=== PATIENT | female | born 1940 | race Caucasian/White ===

== ENCOUNTER → 2017-06-03 | Outpatient (CLI) | payer OTHER ==
[~2017-06-03] MED LIST: ASPIR 8181 MG PO; CARDIZEM CD180 MG PO; CARDIZEM CD240 MG PO; COLACE100 MG PO; COUMADIN 2.5MG2.5 M1 PO; COUMADIN 5 MG TA5 M1 PO; FERREX 150150 MG PO; FLECAINIDE ACET50 M2 PO; GLUCOPHAGE500 MG PO; HYDROCODONE-AP1 EAC6 PO; IPRAT-ALBUT 0.5-3 ML INH; LUTEIN20 MG PO; METOPROLOL SUCC50 MG PO; PACERONE 200 M200 M1 PO; PEPCID20 MG PO; RYTHMOL SR325 MG PO; ZOCOR40 MG PO
[2017-06-03 14:48] LABS: ABG SAMPLE TYPE ARTERIAL; BE(vivo) 2.8 mmol/L (-2 to +3); LACTATE 1.16 mmol/L (0.5-2.0); O2(CT) 16.1 mL/dL (15.0-23.0); PO2 85.1 mmHg (80.0-100.0); pH 7.447 (7.360-7.450); sO2 96.8 % (92.0-98.0); tCO2 28.2 mmol/L (24.0-30.0)
[2017-06-03 14:49] LABS: STICK SITE R.RADIAL
== END ==
LOC: PUL 14:19
PROVIDERS: Internal Medicine Pulmonary Disease
DX: R05 Cough (principal)

== ENCOUNTER → 2017-06-25 | Outpatient (CLI) | payer OTHER ==
--- NOTE | ~2017-06-25 | CNG ---
[facility] [place] [address] CYTO-NONGYN REPORT PROCEDURE Name: ALTAGRACIA RAE Room #: REG [facility].Evelio.#: [id number] Admission: 06/25/17 Date of : 44 Discharge: Report #: [id number] Path Case #: [id number] CYTOPATHOLOGY REPORT COLLECTION DATE: 06/25/2017 RECEIVED DATE: 06/26/2017 SUBMITTING PHYS: Dr. Ian Loza OTHER PHYS: Dr. Samuel King CLINICAL HISTORY: Right pleural effusion SPECIMEN(S) RECEIVED: A.Pleural fluid, Right * * * * * * * * * * * * FINAL DIAGNOSIS: A. Pleural fluid, Right: - No malignant epithelial cells identified. Paucicellular specimen with rare reactive mesothelial cells and scattered small lymphocytes present. PATHOLOGIST: Sophia Gomez M.D. REPORT ELECTRONICALLY SIGNED BY: Sophia Gomez M.D. DATE/TIME: 06/30/2017 12:41 * * * * * * * * * * * * GROSS PATHOLOGY: A. Pleural fluid, Right: The specimen is submitted unfixed, labeled "Altagracia Rae". Received by the Cytology Department is 11 mL of cloudy light red fluid. One ThinPrep slide and a formalin fixed cell block were prepared. (lg.) BPO SPECIALIST(S): JAZMINE Zaldivar(ASCP)IAC INITIAL CPT CODE(S): A; 51864, 57156 Professional services performed by [facility] at [facility] [address], [place] [address] Technical services performed by [facility] at [address] [place] [address], [address], [place] [address]. [facility] [address] [place] [address] CYTO-NONGYN REPORT PROCEDURE Name: ALTAGRACIA RAE Room #: REG [facility].#: [id number] Admission: 06/25/17 Date of : 44 Discharge: Report #: [id number] Path Case #: [id number] [place] [address], [address] [place] [address] PHONE: [phone] DIRECTOR: Manan Xiong M.D. * * * END OF REPORT * * *
[2017-06-25 10:56] LABS: INR 1.2; PROTIME 12.5 Seconds (9.3-11.4)
[2017-06-25 13:00] LABS: SOURCE CHEST FLUID
[2017-06-25 13:01] LABS: CLARITY CLOUDY; COLOR RED; TOTAL VOLUME 55 mL
[2017-06-25 13:21] LABS: BF NUCLEATED CELLS 659; BF RBC 16236
[2017-06-25 14:02] LABS: BF NEUTROPHILS 3
[2017-06-25 14:03] LABS: BF MACROPHAGE 23
[2017-06-25 14:17] LABS: SOURCE CHEST
[2017-06-26 11:10] LABS: BODY FLUID ALBUMIN 1.9 g/dL (()); BODY FLUID AMYLASE 66 U/L (()); BODY FLUID GLUCOSE 89 mg/dL (()); BODY FLUID LDH 130 IU/L (()); BODY FLUID PROTEIN 4.6 g/dL (())
== END | disposition home or self-care (01) ==
LOC: CAT 08:05
PROVIDERS: Internal Medicine Pulmonary Disease
DX: J90 Pleural effusion, not elsewhere classified (principal)

== ENCOUNTER → 2017-07-23 | Outpatient (CLI) | payer OTHER | LOC: CAT 08:27 | DX: K74.60 Unspecified cirrhosis of liver (principal); K80.20 Calculus of gallbladder without cholecystitis without obstruction; R16.1 Splenomegaly, not elsewhere classified; R18.8 Other ascites; K76.0 Fatty (change of) liver, not elsewhere classified; K86.89 Other specified diseases of pancreas; J98.11 Atelectasis; Z98.890 Other specified postprocedural states ==

== ENCOUNTER → 2017-08-17 | Outpatient (CLI) | payer OTHER | LOC: RAD 08:21 | DX: M47.894 Other spondylosis, thoracic region (principal); J90 Pleural effusion, not elsewhere classified; K74.60 Unspecified cirrhosis of liver ==

== ENCOUNTER → 2017-09-11 | Outpatient (CLI) | payer OTHER ==
[2017-09-11 09:46] LABS: INR 1.2; PROTIME 12.7 Seconds (9.3-11.4)
== END | disposition home or self-care (01) ==
LOC: RAD 08:36
PROVIDERS: Internal Medicine Pulmonary Disease
DX: J90 Pleural effusion, not elsewhere classified (principal); Z79.82 Long term (current) use of aspirin; Z79.899 Other long term (current) drug therapy; Z79.891 Long term (current) use of opiate analgesic; Z79.01 Long term (current) use of anticoagulants

== ENCOUNTER → 2017-10-20 | Outpatient (CLI) | payer OTHER | LOC: RAD 09:13 | DX: J90 Pleural effusion, not elsewhere classified (principal); R63.4 Abnormal weight loss; I48.91 Unspecified atrial fibrillation; I10 Essential (primary) hypertension; E11.8 Type 2 diabetes mellitus with unspecified complications ==

== ENCOUNTER → 2017-10-27 | Outpatient (CLI) | payer OTHER ==
[2017-10-27 08:57] LABS: CREATININE 0.9 mg/dL (0.6-1.0)
[2017-10-27 10:05] LABS: INR 1.2; PROTIME 12.3 Seconds (9.3-11.4)
[2017-10-27 11:02] LABS: SOURCE RIGHT CHEST
[2017-10-27 11:03] LABS: CLARITY SLIGHTLY CLOUDY; COLOR DARK YELLOW; TOTAL VOLUME 55 mL
[2017-10-27 11:08] LABS: SOURCE RIGHT CHEST
[2017-10-27 11:09] LABS: SOURCE RIGHT CHEST
[2017-10-27 11:25] LABS: BF NUCLEATED CELLS 620; BF RBC 4510
[2017-10-27 12:48] LABS: BF NEUTROPHILS 1
[2017-10-27 12:49] LABS: BF MACROPHAGE 12
[2017-10-28 12:12] LABS: BODY FLUID ALBUMIN 1.8 g/dL (()); BODY FLUID AMYLASE 73 U/L (()); BODY FLUID GLUCOSE 98 mg/dL (()); BODY FLUID LDH 143 IU/L (())
== END | disposition home or self-care (01) ==
LOC: ULTRA 06:18
PROVIDERS: Internal Medicine Pulmonary Disease
DX: J90 Pleural effusion, not elsewhere classified (principal); I10 Essential (primary) hypertension; E11.9 Type 2 diabetes mellitus without complications; I48.0 Paroxysmal atrial fibrillation; E78.5 Hyperlipidemia, unspecified; Z98.890 Other specified postprocedural states; Z79.899 Other long term (current) drug therapy; Z79.82 Long term (current) use of aspirin; Z79.891 Long term (current) use of opiate analgesic

== ENCOUNTER → 2017-10-30 | Outpatient (CLI) | payer OTHER | LOC: CAT 05:46 | DX: I25.10 Atherosclerotic heart disease of native coronary artery without angina pectoris (principal); I70.0 Atherosclerosis of aorta; I48.91 Unspecified atrial fibrillation; R63.4 Abnormal weight loss ==

== ENCOUNTER 2018-07-24 15:25 | Inpatient (IN) | payer OTHER ==
[~2018-07-24] VITALS: Ht 167.6 cm; Wt 73.5 kg
[2018-07-24 15:26] VITALS: BP 142/91
[2018-07-24 16:25] LABS: ABSOLUTE NEUTROPHILS 3.9 thou/uL (1.4-8.2); BASOPHILS 0.4 % (0.0-2.0); EOSINOPHILS 1.7 % (0.0-3.0); HEMATOCRIT 36.9 % (37.0-47.0); HEMOGLOBIN 12.5 gm/dL (12.0-15.0); LYMPHOCYTES 20.4 % (24.0-44.0); MCH 28.9 pg (26.0-34.0); MCHC 33.9 g/dL (28.0-37.0); MCV 85.4 fL (80.0-100.0); MONOCYTES 5.8 % (1.0-8.0); PLATELET COUNT 163 thou/uL (150-400); POLYS 71.7 % (36.0-66.0); RBC 4.32 mil/uL (4.20-5.00); WBC 5.5 thou/uL (4.0-11.0)
[2018-07-24 16:31] LABS: CALCIUM 9.1 mg/dL (8.5-10.1); CREATININE 0.9 mg/dL (0.6-1.0); POTASSIUM 3.7 mmol/L (3.5-5.1)
[2018-07-24 16:35] LABS: PROTIME 48.3 Seconds (9.3-11.4)
[2018-07-24 16:37] LABS: ALBUMIN 3.8 g/dL (3.4-5.0); TOTAL BILIRUBIN 0.6 mg/dL (<0.1-1.0); TOTAL PROTEIN 8.5 g/dL (6.4-8.2)
[2018-07-24 16:38] LABS: INR 4.7
[2018-07-24 19:59] VITALS: BP 131/43
[2018-07-24] MEDS ORDERED: COUMADIN 3 MG TA3 M1 PO (20:06)
--- NOTE | 2018-07-25 03:13 | NUR ---
PT ARRIVED AT SHIFT CHANGE 1944 PT ORIENTATED TO ROOM AND CALL LIGHT PT SLEPT MOST OF THE NIGHT NO ISSUES OVERNIGHT.
[2018-07-25 04:54] VITALS: BP 114/56
[2018-07-25 05:33] LABS: PROTIME 67.2 Seconds (9.3-11.4)
[2018-07-25 05:52] LABS: INR 6.5
[2018-07-25 07:10] VITALS: BP 119/48
[2018-07-25 08:12] LABS: INR 6.7
--- NOTE | 2018-07-25 11:22 | NUR ---
TOWARDS POC PT A/O X4, VSS,AFEBRILE. NO EPISODES OF NV. PAIN CONTROLLED BY MEDS. SHOULDER IMMOBILIZER INTACT. AWAITING FOR PT/OT EVAL. NO CONCERNS VOICED AT THIS TIME. WILL CONTINUE TO MONITOR.
[2018-07-25 14:00] VITALS: BP 120/49
[2018-07-25 19:51] VITALS: BP 115/46
[2018-07-26 04:41] VITALS: BP 113/45
[2018-07-26 04:48] LABS: HEMATOCRIT 28.9 % (37.0-47.0); MCH 29.7 pg (26.0-34.0); MCHC 34.8 g/dL (28.0-37.0); MCV 85.5 fL (80.0-100.0); RBC 3.38 mil/uL (4.20-5.00); RDW 14.4 % (10.5-14.5); WBC 6.1 thou/uL (4.0-11.0)
[2018-07-26 04:55] LABS: CALCIUM 8.3 mg/dL (8.5-10.1)
[2018-07-26 05:01] LABS: PROTIME 76.4 Seconds (9.3-11.4)
[2018-07-26 05:04] LABS: INR 7.4
--- NOTE | 2018-07-26 07:04 | NUR ---
progress pt admitted with right humeral fracture from fall at home. right arm and shoulder immobilized. o2 sat down to 85% on ra placed on 2 liters o2 sats up to 92%. pt/ot consult. tele reading afib with rates of 60's to 70's. taking hydrocodone for pain with effect. voiding qs. inr 6.7 at start of shift and 7.4 this am sanya rodríguez net maker notified, ordered a po dose of vitamin k given with apple juice. to f/u with ortho in 6 to 8 weeks.
[2018-07-26 08:00] VITALS: BP 132/46
[2018-07-26] MEDS ORDERED: HYDROCODON-ACE1 EAC7 PO (10:50)
[2018-07-26 12:05] VITALS: BP 132/46
--- NOTE | 2018-07-26 15:00 | NUR ---
ASSUMED CARE AT 0700. PT WAS CLEARED BY ORTHO, F/U WITH [facility] IN 2WKS AND 'S [facility] FOR INR DRAW ON THU. RECEIVED AN ORDER TO D/C PT HOME WITH PAIN MEDICATION. OT ALSO SAW THE PT AND GAVE EDUCATION ON HOW TO CARE OF THE R SHOULDER SLING. IV D/C, TELE D/C. P/U. PRESCRIPTION AND INSTRUCTION GIVEN TO PT AT BEDSIDE. VERBALIZES UNDERSTANDING. LEFT IN STABLE CONDITION,
== END 2018-07-26 14:55 | disposition home or self-care (01) | DRG 562 ==
LOC: ER 15:25 → EROBS 17:41 → 4W 17:41 → ENTRNSPT 07-26 14:32 → EDTRNSPTSTS 07-26 14:35 → 4W 07-26 14:55
PROVIDERS: Hospitalist; Nurse Practitioner Family; Physician Assistant; ADMIT Family Medicine
PROC: 2W3AX1Z Immobilization of Right Upper Arm using Splint (ICD-10-PCS; principal; 2018-07-24)
DX: S42.201A Unspecified fracture of upper end of right humerus, initial encounter for closed fracture (principal); E43 Unspecified severe protein-calorie malnutrition; M25.011 Hemarthrosis, right shoulder; J90 Pleural effusion, not elsewhere classified; E11.9 Type 2 diabetes mellitus without complications; I10 Essential (primary) hypertension; E78.00 Pure hypercholesterolemia, unspecified; Z87.891 Personal history of nicotine dependence; Z79.01 Long term (current) use of anticoagulants; W01.0XXA Fall on same level from slipping, tripping and stumbling without subsequent striking against object, initial encounter; Y93.01 Activity, walking, marching and hiking; Y92.89 Other specified places as the place of occurrence of the external cause; Y99.8 Other external cause status
CPT/HCPCS: 10047

== ENCOUNTER → 2019-07-12 | Outpatient (CLI) | payer OTHER ==
[~2019-07-12] MED LIST changes: +COUMADIN 2 MG TA2 M1 PO; +COUMADIN 3 MG TA3 M1 PO; +HYDROCODON-ACE1 EAC7 PO
== END ==
LOC: SJCVC 13:33
DX: Z51.81 Encounter for therapeutic drug level monitoring (principal); I48.91 Unspecified atrial fibrillation; E11.9 Type 2 diabetes mellitus without complications; I10 Essential (primary) hypertension; E78.00 Pure hypercholesterolemia, unspecified; Z95.2 Presence of prosthetic heart valve; Z79.01 Long term (current) use of anticoagulants

== ENCOUNTER → 2019-07-19 | Outpatient (CLI) | payer OTHER | LOC: SJCVC 08:46 | DX: Z51.81 Encounter for therapeutic drug level monitoring (principal); I48.91 Unspecified atrial fibrillation; E11.9 Type 2 diabetes mellitus without complications; I10 Essential (primary) hypertension; E78.00 Pure hypercholesterolemia, unspecified; Z95.2 Presence of prosthetic heart valve; Z79.01 Long term (current) use of anticoagulants ==

== ENCOUNTER → 2019-07-26 | Outpatient (CLI) | payer OTHER | LOC: SJCVC 08:22 | DX: Z51.81 Encounter for therapeutic drug level monitoring (principal); I48.91 Unspecified atrial fibrillation; E78.00 Pure hypercholesterolemia, unspecified; I10 Essential (primary) hypertension; E11.9 Type 2 diabetes mellitus without complications; Z79.01 Long term (current) use of anticoagulants ==

== ENCOUNTER → 2019-08-02 | Outpatient (CLI) | payer OTHER | LOC: SJCVC 08:26 | DX: Z51.81 Encounter for therapeutic drug level monitoring (principal); I48.91 Unspecified atrial fibrillation; E11.9 Type 2 diabetes mellitus without complications; I10 Essential (primary) hypertension; E78.00 Pure hypercholesterolemia, unspecified; Z95.2 Presence of prosthetic heart valve; Z79.01 Long term (current) use of anticoagulants ==

== ENCOUNTER 2019-08-04 09:28 | Inpatient (IN) | payer OTHER ==
[~2019-08-04] VITALS: Ht 165.1 cm; Wt 68.0 kg
[2019-08-04] VITALS (8 sets, daily range): BP systolic 100–135; BP diastolic 35–46
--- NOTE | ~2019-08-04 | EKG ---
[facility] [place] [address] ELECTROCARDIOGRAM REPORT Name: JWVIPUL SUE Room #: PRE M.R.#: [id number] Admission: Attend Phys: Discharge: Date of : 44 Report #: [id number] THIS REPORT FOR: cc: Reji King MD, Neal A. MD Epiphany, Epiphany MD ~ THIS REPORT FOR: //name// [facility] ED Test Date: 2019-08-04 Test Time: 09:31:10 Pat Name: VIPUL ESCALERA Department: Room: Gender: F Sole Trimmer: ROSA : 1940 Requested By: Philip Mckeon Order Number: [id number] MD: Measurements Intervals Independence Rate: 93 P: AL: QRS: -90 QRSD: 114 T: 59 QT: 380 QTc: 473 Interpretive Statements Atrial fibrillation Borderline IVCD with LAD Abnormal R-wave progression, late transition Inferior infarct, old Compared to ECG 08/14/2014 07:30:42 Myocardial infarct finding now present Left-axis deviation no longer present [email or web address] By: 0931 0 Epiphany Epiphany, /EPI
[~2019-08-04 09:28] MED LIST changes: -COUMADIN 2 MG TA2 M1 PO
[2019-08-04 09:55] LABS: ABSOLUTE NEUTROPHILS 4.7 thou/uL (1.4-8.2); BASOPHILS 1.2 % (0.0-2.0); EOSINOPHILS 0.1 % (0.0-3.0); HEMATOCRIT 38.2 % (37.0-47.0); HEMOGLOBIN 12.7 gm/dL (12.0-15.0); LYMPHOCYTES 13.5 % (24.0-44.0); MCH 28.4 pg (26.0-34.0); MCHC 33.2 g/dL (28.0-37.0); MCV 85.5 fL (80.0-100.0); PLATELET COUNT 115 thou/uL (150-400); POLYS 75.2 % (36.0-66.0); RBC 4.47 mil/uL (4.20-5.00); RDW 15.1 % (10.5-14.5); WBC 6.3 thou/uL (4.0-11.0)
[2019-08-04 09:57] LABS: ANION GAP 6 mmol/L (7-16); BUN 18 mg/dL (7-18); CALCIUM 8.4 mg/dL (8.5-10.1); CHLORIDE 98 mmol/L (98-107); CO2 30 mmol/L (21-32); CREATININE 1.1 mg/dL (0.6-1.0); GLUCOSE 74 mg/dL (74-106); INR 2.3; PROTIME 23.6 Seconds (9.3-11.4); SODIUM 134 mmol/L (136-145)
[2019-08-04 09:59] LABS: POTASSIUM 3.7 mmol/L (3.5-5.1)
[2019-08-04 10:05] LABS: MAGNESIUM 1.8 mg/dL (1.8-2.4); TROPONIN-I <0.06 ng/mL (<0.06)
[2019-08-04] MEDS ORDERED: COUMADIN 2 MG TA2 M1 PO ×2 (10:12→10:13)
[2019-08-04 12:41] LABS: URINE BILIRUBIN NEGATIVE (Negative); URINE BLOOD 3+ (Negative); URINE CLARITY CLEAR; URINE COLOR YELLOW; URINE GLUCOSE-RANDOM* NEGATIVE (Negative); URINE KETONES NEGATIVE (Negative); URINE LEUKOCYTES-REFLEX NEGATIVE (Negative); URINE NITRITE-REFLEX NEGATIVE (Negative); URINE PROTEIN (DIPSTICK) 2+ (Negative); URINE SPECIFIC GRAVITY >= 1.030 (1.005-1.035)
[2019-08-04 12:44] LABS: SQUAMOUS None Seen /LPF (0-3); URINE RBC 0-2 Rare /HPF (0-2); URINE WBC-REFLEX None Seen /HPF (0-5)
[2019-08-04 12:45] LABS: AMORPHOUS URATES Few /LPF (None Seen); BACTERIA-REFLEX None Seen /HPF (None Seen); CRYSTALS None Seen /LPF (None Seen)
--- NOTE | 2019-08-04 16:27 | NUR ---
PT CARE ASSUMED APPROX 1500. ASSESSMENT CHARTED. PT DENIES PAIN AND SOA. VSS. UP WITH SBA. ORTHO BPs WERE NEGATIVE. SON AT BEDSIDE. BOTH GIVEN POC UPDATES. THEY DENY QUESTIONS OR CONCERNS AT THIS TIME REGARDING POC. NO DISTRESS NOTED.
[2019-08-05] VITALS (7 sets, daily range): BP systolic 124–143; BP diastolic 35–46
--- NOTE | 2019-08-05 00:49 | NUR ---
ASSESSMENTS CHARTED, MEDS GIVEN CHARTED. PATIENT RESTING IN BED DURING SHIFT. FAMILY AT BEDSIDE AT START OF SHIFT. PATIENT ALERT AND ORIENTED, AFIB ON TELEMETRY, LUNGS CLEAR ON ROOM AIR, UP WITH STANDBY ASSIST TO BATHROOM DUE TO EARLIER SYNCOPAL EPISODE DURING DAY. PATIENT RESTARTED ON WARFARIN THIS EVENING. CHEST XRAY AND CT OF HEAD BOTH SHOW NO ACUTE PROCESSES. PATIENT ON FALL RISK PRECAUTIONS. DENIES PAIN.
--- NOTE | 2019-08-05 08:58 | NUR ---
called to echo buy technology applications consultant to assess IV. Pt c/o pain at IV site in L AC. It is actively bleeding. IV does flush and has positive blood return. Per Dr. Agosto, pt is to be discharged after her echo. IV removed by this RN.
--- NOTE | 2019-08-05 09:52 | 2DMMODE ---
[facility] [address] [place] [address] 2 D/M-MODE ECHOCARDIOGRAM Name: VIPUL ESCALERA Room #: 204-P ADM IN M.R.#: [id number] Admission: 08/04/19 Attend Phys: Reji King MD Discharge: Date of : 44 Report #: [id number] THIS REPORT FOR: cc: Reji King MD, Neal A. MD Park, Jin S. MD ~ THIS REPORT FOR: //name// APPROVED REPORT Study performed: 08/05/2019 08:50:48 EXAM: Comprehensive 2D, Doppler, and color-flow Echocardiogram Patient Location: Echo lab Room #: 204 Status: routine BSA: 1.75 HR: 82 bpm BP: 143/42 mmHg Rhythm: Atrial Fibrillation Other Information Study Quality: Good Indications Aortic Valve Disease Diabetes Atrial Fibrillation Syncope Hypertension/HDD 2D Dimensions RVDd: 34.19 mm IVSd: 10.89 (7-11mm) LVOT Diam: 16.93 (18-24mm) LVDd: 42.36 mm PWd: 10.63 (7-11mm) Ascending Ao: 22.48 (22-36mm) LVDs: 27.59 (25-40mm) Aortic Root: 26.12 mm IVC: 23.00 mm Volumes Left Atrial Volume (Systole) Single Plane 4CH: 84.78 mL Single Plane 2CH: 83.33 mL LA ESV Index: 52.00 mL/m2 [facility] [address] [place] [address] 2 D/M-MODE ECHOCARDIOGRAM Name: VIPUL ESCALERA Room #: 204-P ADM IN M.R.#: [id number] Admission: 08/04/19 Attend Phys: Reji King, Discharge: Date of : 44 Report #: [id number] Aortic Valve AoV Peak Juan.: 4.00 m/s AO Peak Gr.: 63.97 mmHg LVOT Max P.97 mmHg AO Mean Gr.: 39.28 mmHg LVOT Mean P.09 mmHg AO V2 Mean: 2.87 m/s LVOT Max V: 1.41 m/s AO V2 VTI: 83.44 cm LVOT Mean V: 1.05 m/s DEXTER (VTI): 0.94 cm2 LVOT V1 VTI: 34.74 cm DEXTER Vmax: 0.79 cm2 SV (LVOT): 78.20 mL Pulmonary Valve PV Peak Juan.: 1.07 m/s PV Peak Gr.: 4.62 mmHg Tricuspid Valve TR Peak Juan.: 3.06 m/s TR Peak Gr.: 37.62 mmHg PA Pressure: 48.00 mmHg Left Ventricle The left ventricle is normal size. There is normal LV segmental wall motion. There is normal left ventricular wall thickness. The left ventricular systolic function is normal. The left ventricular ejection fraction is within the normal range. LVEF is 55-60%. This study is not technically sufficient to allow evaluation of the LV diastolic function due to atrial fibrillation. Right Ventricle The right ventricle is normal size. The right ventricular systolic function is normal. Atria Left atrium is dilated. Right atrium is dilated. Aortic Valve Bioprosthetic aortic valve is present with a peak gradient of 64 mmHg and a mean gradient of 39 mmHg. Mild aortic regurgitation. Mitral Valve The mitral valve is normal in structure. There is mitral annular calcification. Trace to mild mitral regurgitation. No evidence of mitral valve stenosis. Tricuspid Valve The tricuspid valve is normal in structure. There is mild tricuspid regurgitation. Estimated PAP 48 mmHg. There is moderate pulmonary hypertension. [facility] [address] [place] [address] 2 D/M-MODE ECHOCARDIOGRAM Name: VIPUL ESCALERA Room #: 204-P [facility] IN .R.#: [id number] Admission: 08/04/19 Attend Phys: Reji King, Discharge: Date of : 44 Report #: [id number] Pulmonic Valve The pulmonary valve is normal in structure. Trace pulmonic regurgitation. Great Vessels The aortic root is normal in size. IVC is dilated and collapses >50% with inspiration. Pericardium There is no pericardial effusion. <Conclusion> The left ventricle is normal size. There is normal left ventricular wall thickness. The left ventricular systolic function is normal. The right ventricle is normal size. Left atrium is dilated. Bioprosthetic aortic valve is present with a peak gradient of 64 mmHg and a mean gradient of 39 mmHg. Mild aortic regurgitation. Trace to mild mitral regurgitation. There is mild tricuspid regurgitation. Estimated PAP 48 mmHg. <ELECTRONICALLY SIGNED> By: Toney Agosto MD 08/05/1950 1 1 Toney Agosto MD /INF
--- NOTE | 2019-08-05 14:11 | NUR ---
PT CARE ASSUMED APPROXIMATELY 0700. PT ASSESSMENTS CHARTED. PT DENIED ANY PAIN. PT RECIEVED FLU VACCINE PRIOR TO DISCHARGE.
== END 2019-08-05 13:39 | disposition home or self-care (01) | DRG 641 ==
LOC: ER 09:28 → EROBS 13:45 → 2N 13:45 → ENTRNSPT 08-05 13:03 → EDTRNSPTSTS 08-05 13:20 → 2N 08-05 13:39
PROVIDERS: Emergency Medicine; ADMIT Family Medicine
DX: E86.0 Dehydration (principal); R55 Syncope and collapse; Z91.81 History of falling; Z79.01 Long term (current) use of anticoagulants; E78.00 Pure hypercholesterolemia, unspecified; E11.9 Type 2 diabetes mellitus without complications; I10 Essential (primary) hypertension; I48.91 Unspecified atrial fibrillation; Z95.2 Presence of prosthetic heart valve; Z87.891 Personal history of nicotine dependence; I35.0 Nonrheumatic aortic (valve) stenosis; E78.5 Hyperlipidemia, unspecified
CPT/HCPCS: 10081

== ENCOUNTER → 2019-08-09 | Outpatient (CLI) | payer OTHER ==
[~2019-08-09] MED LIST changes: +COUMADIN 2 MG TA2 M1 PO
== END ==
LOC: SJCVC 08:29
DX: Z51.81 Encounter for therapeutic drug level monitoring (principal); I48.91 Unspecified atrial fibrillation; E11.9 Type 2 diabetes mellitus without complications; I10 Essential (primary) hypertension; E78.00 Pure hypercholesterolemia, unspecified; Z68.24 Body mass index [BMI] 24.0-24.9, adult; Z95.3 Presence of xenogenic heart valve; Z79.01 Long term (current) use of anticoagulants

== ENCOUNTER → 2019-08-16 | Outpatient (CLI) | payer OTHER | LOC: SJCVC 08:05 | DX: Z51.81 Encounter for therapeutic drug level monitoring (principal); Z79.01 Long term (current) use of anticoagulants ==

== ENCOUNTER → 2019-08-19 | Outpatient (CLI) | payer OTHER | LOC: SJCVC 11:24 | DX: Z51.81 Encounter for therapeutic drug level monitoring (principal); I48.91 Unspecified atrial fibrillation; I35.9 Nonrheumatic aortic valve disorder, unspecified; I10 Essential (primary) hypertension; E78.00 Pure hypercholesterolemia, unspecified; E11.9 Type 2 diabetes mellitus without complications; Z95.2 Presence of prosthetic heart valve; Z87.891 Personal history of nicotine dependence; Z79.899 Other long term (current) drug therapy; Z79.01 Long term (current) use of anticoagulants ==

== ENCOUNTER → 2019-08-26 | Outpatient (CLI) | payer OTHER | LOC: SJCVC 08:21 | DX: Z51.81 Encounter for therapeutic drug level monitoring (principal); I48.91 Unspecified atrial fibrillation; E11.9 Type 2 diabetes mellitus without complications; I10 Essential (primary) hypertension; E78.00 Pure hypercholesterolemia, unspecified; Z95.2 Presence of prosthetic heart valve; Z79.01 Long term (current) use of anticoagulants ==

== ENCOUNTER → 2019-09-02 | Outpatient (CLI) | payer OTHER | LOC: SJCVCIMAG 14:23 | DX: I48.91 Unspecified atrial fibrillation (principal); Z79.01 Long term (current) use of anticoagulants ==

== ENCOUNTER → 2019-09-16 | Outpatient (CLI) | payer OTHER | LOC: SJCVC 08:02 | DX: Z51.81 Encounter for therapeutic drug level monitoring (principal); E11.9 Type 2 diabetes mellitus without complications; I48.91 Unspecified atrial fibrillation; I10 Essential (primary) hypertension; E78.00 Pure hypercholesterolemia, unspecified; Z79.01 Long term (current) use of anticoagulants ==

== ENCOUNTER → 2019-09-23 | Outpatient (CLI) | payer OTHER | LOC: SJCVC 08:33 | DX: Z51.81 Encounter for therapeutic drug level monitoring (principal); I48.91 Unspecified atrial fibrillation; I10 Essential (primary) hypertension; E78.00 Pure hypercholesterolemia, unspecified; Z72.0 Tobacco use; Z79.01 Long term (current) use of anticoagulants; Z68.24 Body mass index [BMI] 24.0-24.9, adult ==

== ENCOUNTER → 2019-09-30 | Outpatient (CLI) | payer OTHER | LOC: SJCVC 08:24 | DX: Z51.81 Encounter for therapeutic drug level monitoring (principal); I48.91 Unspecified atrial fibrillation; E11.9 Type 2 diabetes mellitus without complications; I10 Essential (primary) hypertension; E78.00 Pure hypercholesterolemia, unspecified; Z95.2 Presence of prosthetic heart valve; Z79.01 Long term (current) use of anticoagulants; Z79.899 Other long term (current) drug therapy ==

== ENCOUNTER → 2019-10-06 | Outpatient (CLI) | payer OTHER | LOC: SJCVC 08:35 | PROVIDERS: ATTEND Internal Medicine | DX: Z51.81 Encounter for therapeutic drug level monitoring (principal); E11.9 Type 2 diabetes mellitus without complications; I10 Essential (primary) hypertension; E78.00 Pure hypercholesterolemia, unspecified; Z79.01 Long term (current) use of anticoagulants ==

== ENCOUNTER → 2019-10-20 | Outpatient (CLI) | payer OTHER | LOC: SJCVC 08:20 | DX: Z51.81 Encounter for therapeutic drug level monitoring (principal); I48.91 Unspecified atrial fibrillation; E78.00 Pure hypercholesterolemia, unspecified; I10 Essential (primary) hypertension; Z95.2 Presence of prosthetic heart valve; Z87.891 Personal history of nicotine dependence; Z79.01 Long term (current) use of anticoagulants ==

== ENCOUNTER → 2019-11-17 | Outpatient (CLI) | payer OTHER | LOC: SJCVC 08:55 | DX: Z51.81 Encounter for therapeutic drug level monitoring (principal); I48.91 Unspecified atrial fibrillation; E11.9 Type 2 diabetes mellitus without complications; I10 Essential (primary) hypertension; E78.00 Pure hypercholesterolemia, unspecified; Z79.01 Long term (current) use of anticoagulants; Z79.899 Other long term (current) drug therapy; Z95.2 Presence of prosthetic heart valve ==

== ENCOUNTER → 2019-12-15 | Outpatient (CLI) | payer OTHER | LOC: SJCVC 08:12 | PROVIDERS: ATTEND Internal Medicine Cardiovascular Disease | DX: Z51.81 Encounter for therapeutic drug level monitoring (principal); I48.91 Unspecified atrial fibrillation; E11.9 Type 2 diabetes mellitus without complications; I10 Essential (primary) hypertension; E78.00 Pure hypercholesterolemia, unspecified; Z68.24 Body mass index [BMI] 24.0-24.9, adult; Z79.01 Long term (current) use of anticoagulants ==

== ENCOUNTER → 2019-12-22 | Outpatient (CLI) | payer OTHER | LOC: SJCVCIMAG 08:51 | PROVIDERS: ATTEND Internal Medicine Cardiovascular Disease | DX: Z51.81 Encounter for therapeutic drug level monitoring (principal); I48.91 Unspecified atrial fibrillation; E11.9 Type 2 diabetes mellitus without complications; I10 Essential (primary) hypertension; E78.00 Pure hypercholesterolemia, unspecified; Z95.2 Presence of prosthetic heart valve; Z79.01 Long term (current) use of anticoagulants; Z79.899 Other long term (current) drug therapy ==

== ENCOUNTER → 2020-01-05 | Outpatient (CLI) | payer OTHER | LOC: SJCVC 08:25 | PROVIDERS: ATTEND Internal Medicine Cardiovascular Disease | DX: Z51.81 Encounter for therapeutic drug level monitoring (principal); I48.91 Unspecified atrial fibrillation; E11.9 Type 2 diabetes mellitus without complications; I10 Essential (primary) hypertension; E78.00 Pure hypercholesterolemia, unspecified; Z95.2 Presence of prosthetic heart valve; Z79.01 Long term (current) use of anticoagulants; Z79.899 Other long term (current) drug therapy ==

== ENCOUNTER → 2020-02-02 | Outpatient (CLI) | payer OTHER | LOC: SJCVC 08:31 | PROVIDERS: ATTEND Internal Medicine Cardiovascular Disease | DX: Z51.81 Encounter for therapeutic drug level monitoring (principal); I48.91 Unspecified atrial fibrillation; E11.9 Type 2 diabetes mellitus without complications; I10 Essential (primary) hypertension; E78.00 Pure hypercholesterolemia, unspecified; Z95.2 Presence of prosthetic heart valve; Z79.01 Long term (current) use of anticoagulants; Z79.899 Other long term (current) drug therapy ==

== ENCOUNTER → 2020-03-01 | Outpatient (CLI) | payer OTHER | LOC: SJCVC 08:10 | PROVIDERS: ATTEND Internal Medicine Cardiovascular Disease | DX: Z51.81 Encounter for therapeutic drug level monitoring (principal); I48.91 Unspecified atrial fibrillation; E11.9 Type 2 diabetes mellitus without complications; I10 Essential (primary) hypertension; E78.00 Pure hypercholesterolemia, unspecified; Z95.2 Presence of prosthetic heart valve; Z68.24 Body mass index [BMI] 24.0-24.9, adult; Z79.01 Long term (current) use of anticoagulants; Z79.899 Other long term (current) drug therapy ==

== ENCOUNTER → 2020-03-08 | Outpatient (CLI) | payer OTHER | LOC: SJCVC 08:16 | PROVIDERS: ATTEND Internal Medicine Cardiovascular Disease | DX: Z51.81 Encounter for therapeutic drug level monitoring (principal); Z79.01 Long term (current) use of anticoagulants; I48.91 Unspecified atrial fibrillation; I35.2 Nonrheumatic aortic (valve) stenosis with insufficiency; I10 Essential (primary) hypertension; Z95.2 Presence of prosthetic heart valve ==

== ENCOUNTER → 2020-03-22 | Outpatient (CLI) | payer OTHER | LOC: SJCVC 08:19 | PROVIDERS: ATTEND Internal Medicine Cardiovascular Disease | DX: Z51.81 Encounter for therapeutic drug level monitoring (principal); I48.91 Unspecified atrial fibrillation; I10 Essential (primary) hypertension; E78.00 Pure hypercholesterolemia, unspecified; E11.9 Type 2 diabetes mellitus without complications; Z95.2 Presence of prosthetic heart valve; Z79.01 Long term (current) use of anticoagulants; Z79.899 Other long term (current) drug therapy ==

== ENCOUNTER → 2020-03-29 | Outpatient (CLI) | payer OTHER | LOC: SJCVC 08:09 | PROVIDERS: ATTEND Internal Medicine Cardiovascular Disease | DX: Z51.81 Encounter for therapeutic drug level monitoring (principal); I35.9 Nonrheumatic aortic valve disorder, unspecified; Z79.01 Long term (current) use of anticoagulants ==

== ENCOUNTER → 2020-04-05 | Outpatient (CLI) | payer OTHER | LOC: SJCVC 08:23 | PROVIDERS: ATTEND Internal Medicine Cardiovascular Disease | DX: Z51.81 Encounter for therapeutic drug level monitoring (principal); I48.91 Unspecified atrial fibrillation; I10 Essential (primary) hypertension; E78.00 Pure hypercholesterolemia, unspecified; Z95.4 Presence of other heart-valve replacement; Z79.01 Long term (current) use of anticoagulants ==

== ENCOUNTER → 2020-04-12 | Outpatient (CLI) | payer OTHER | LOC: SJCVC 08:41 | PROVIDERS: ATTEND Internal Medicine Cardiovascular Disease | DX: Z51.81 Encounter for therapeutic drug level monitoring (principal); I48.91 Unspecified atrial fibrillation; E11.9 Type 2 diabetes mellitus without complications; I10 Essential (primary) hypertension; E78.00 Pure hypercholesterolemia, unspecified; Z95.2 Presence of prosthetic heart valve; Z79.01 Long term (current) use of anticoagulants; Z79.899 Other long term (current) drug therapy ==

== ENCOUNTER → 2020-04-19 | Outpatient (CLI) | payer OTHER | LOC: SJCVC 08:25 | PROVIDERS: ATTEND Internal Medicine Cardiovascular Disease | DX: Z51.81 Encounter for therapeutic drug level monitoring (principal); I48.91 Unspecified atrial fibrillation; E11.9 Type 2 diabetes mellitus without complications; I10 Essential (primary) hypertension; E78.00 Pure hypercholesterolemia, unspecified; Z68.24 Body mass index [BMI] 24.0-24.9, adult; Z79.01 Long term (current) use of anticoagulants; Z79.899 Other long term (current) drug therapy ==

== ENCOUNTER → 2020-05-03 | Outpatient (CLI) | payer OTHER | LOC: SJCVC 08:18 | PROVIDERS: ATTEND Internal Medicine Cardiovascular Disease | DX: Z51.81 Encounter for therapeutic drug level monitoring (principal); I48.91 Unspecified atrial fibrillation; E11.9 Type 2 diabetes mellitus without complications; I10 Essential (primary) hypertension; E78.00 Pure hypercholesterolemia, unspecified; Z68.24 Body mass index [BMI] 24.0-24.9, adult; Z95.2 Presence of prosthetic heart valve; Z79.01 Long term (current) use of anticoagulants; Z79.899 Other long term (current) drug therapy ==

== ENCOUNTER → 2020-05-18 | Outpatient (CLI) | payer OTHER | LOC: SJCVC 09:02 | PROVIDERS: ATTEND Internal Medicine Cardiovascular Disease | DX: I48.91 Unspecified atrial fibrillation (principal); R94.31 Abnormal electrocardiogram [ECG] [EKG]; I45.10 Unspecified right bundle-branch block; I35.9 Nonrheumatic aortic valve disorder, unspecified; I10 Essential (primary) hypertension; R60.9 Edema, unspecified; E11.9 Type 2 diabetes mellitus without complications; Z95.2 Presence of prosthetic heart valve; Z79.01 Long term (current) use of anticoagulants; Z79.899 Other long term (current) drug therapy; Z87.891 Personal history of nicotine dependence ==

== ENCOUNTER → 2020-11-22 | Outpatient (CLI) | payer OTHER | LOC: SJCVC 08:50 | PROVIDERS: ATTEND Internal Medicine Cardiovascular Disease | DX: Z51.81 Encounter for therapeutic drug level monitoring (principal); I48.91 Unspecified atrial fibrillation; E11.9 Type 2 diabetes mellitus without complications; I35.2 Nonrheumatic aortic (valve) stenosis with insufficiency; I10 Essential (primary) hypertension; I73.00 Raynaud's syndrome without gangrene; E78.00 Pure hypercholesterolemia, unspecified; Z95.2 Presence of prosthetic heart valve; Z95.3 Presence of xenogenic heart valve; Z79.01 Long term (current) use of anticoagulants ==

== ENCOUNTER → 2020-11-29 | Outpatient (CLI) | payer OTHER | LOC: SJCVC 08:33 | PROVIDERS: ATTEND Internal Medicine Cardiovascular Disease | DX: Z51.81 Encounter for therapeutic drug level monitoring (principal); I48.91 Unspecified atrial fibrillation; E11.9 Type 2 diabetes mellitus without complications; I10 Essential (primary) hypertension; E78.00 Pure hypercholesterolemia, unspecified; Z95.2 Presence of prosthetic heart valve; Z68.24 Body mass index [BMI] 24.0-24.9, adult; Z79.01 Long term (current) use of anticoagulants; Z79.899 Other long term (current) drug therapy ==

== ENCOUNTER → 2020-12-04 | Outpatient (CLI) | payer OTHER | LOC: SJCVC 09:10 | PROVIDERS: ATTEND Internal Medicine Cardiovascular Disease | DX: Z51.81 Encounter for therapeutic drug level monitoring (principal); Z79.01 Long term (current) use of anticoagulants ==

== ENCOUNTER → 2020-12-11 | Outpatient (CLI) | payer OTHER | LOC: SJCVC 08:19 | PROVIDERS: ATTEND Internal Medicine Cardiovascular Disease | DX: Z51.81 Encounter for therapeutic drug level monitoring (principal); I48.20 Chronic atrial fibrillation, unspecified; I25.10 Atherosclerotic heart disease of native coronary artery without angina pectoris; E11.9 Type 2 diabetes mellitus without complications; E78.00 Pure hypercholesterolemia, unspecified; I10 Essential (primary) hypertension; J18.9 Pneumonia, unspecified organism; Z79.01 Long term (current) use of anticoagulants; Z87.891 Personal history of nicotine dependence; Z88.0 Allergy status to penicillin; Z95.4 Presence of other heart-valve replacement; Z79.899 Other long term (current) drug therapy ==

== ENCOUNTER → 2020-12-25 | Outpatient (CLI) | payer OTHER | LOC: SJCVC 08:20 | PROVIDERS: ATTEND Internal Medicine Cardiovascular Disease | DX: Z51.81 Encounter for therapeutic drug level monitoring (principal); Z79.01 Long term (current) use of anticoagulants ==

== ENCOUNTER → 2021-01-23 | Outpatient (CLI) | payer OTHER | LOC: SJCVC 08:28 | PROVIDERS: ATTEND Internal Medicine Cardiovascular Disease | DX: Z51.81 Encounter for therapeutic drug level monitoring (principal); I48.91 Unspecified atrial fibrillation; E11.9 Type 2 diabetes mellitus without complications; I10 Essential (primary) hypertension; E78.00 Pure hypercholesterolemia, unspecified; Z95.2 Presence of prosthetic heart valve; Z68.24 Body mass index [BMI] 24.0-24.9, adult; Z79.01 Long term (current) use of anticoagulants ==

== ENCOUNTER → 2021-02-19 | Outpatient (CLI) | payer OTHER | LOC: SJCVC 08:34 | PROVIDERS: ATTEND Internal Medicine Cardiovascular Disease | DX: Z51.81 Encounter for therapeutic drug level monitoring (principal); I48.91 Unspecified atrial fibrillation; E11.9 Type 2 diabetes mellitus without complications; I10 Essential (primary) hypertension; E78.00 Pure hypercholesterolemia, unspecified; Z95.2 Presence of prosthetic heart valve; Z68.24 Body mass index [BMI] 24.0-24.9, adult; Z79.01 Long term (current) use of anticoagulants ==

== ENCOUNTER → 2021-03-01 | Outpatient (CLI) | payer OTHER | LOC: SJCVC 08:42 | PROVIDERS: ATTEND Internal Medicine Cardiovascular Disease | DX: Z51.81 Encounter for therapeutic drug level monitoring (principal); I48.91 Unspecified atrial fibrillation; I35.2 Nonrheumatic aortic (valve) stenosis with insufficiency; I35.9 Nonrheumatic aortic valve disorder, unspecified; E78.00 Pure hypercholesterolemia, unspecified; I10 Essential (primary) hypertension; E11.9 Type 2 diabetes mellitus without complications; I73.00 Raynaud's syndrome without gangrene; Z95.3 Presence of xenogenic heart valve; Z68.24 Body mass index [BMI] 24.0-24.9, adult; Z79.01 Long term (current) use of anticoagulants; Z87.891 Personal history of nicotine dependence ==

== ENCOUNTER → 2021-03-15 | Outpatient (CLI) | payer OTHER | LOC: SJCVC 08:42 | PROVIDERS: ATTEND Internal Medicine Cardiovascular Disease | DX: Z51.81 Encounter for therapeutic drug level monitoring (principal); I48.91 Unspecified atrial fibrillation; E11.9 Type 2 diabetes mellitus without complications; Z79.899 Other long term (current) drug therapy; Z79.01 Long term (current) use of anticoagulants ==

== ENCOUNTER → 2021-03-22 | Outpatient (CLI) | payer OTHER | LOC: SJCVC 09:43 | PROVIDERS: ATTEND Internal Medicine Cardiovascular Disease | DX: Z51.81 Encounter for therapeutic drug level monitoring (principal); I48.91 Unspecified atrial fibrillation; I25.10 Atherosclerotic heart disease of native coronary artery without angina pectoris; E11.9 Type 2 diabetes mellitus without complications; E78.00 Pure hypercholesterolemia, unspecified; I10 Essential (primary) hypertension; J18.9 Pneumonia, unspecified organism; Z82.49 Family history of ischemic heart disease and other diseases of the circulatory system; Z79.01 Long term (current) use of anticoagulants; Z79.899 Other long term (current) drug therapy; Z87.891 Personal history of nicotine dependence ==

== ENCOUNTER → 2021-03-29 | Outpatient (CLI) | payer OTHER | LOC: SJCVC 08:54 | PROVIDERS: ATTEND Internal Medicine Cardiovascular Disease | DX: Z51.81 Encounter for therapeutic drug level monitoring (principal); I10 Essential (primary) hypertension; E11.9 Type 2 diabetes mellitus without complications; I25.10 Atherosclerotic heart disease of native coronary artery without angina pectoris; Z79.01 Long term (current) use of anticoagulants; Z79.899 Other long term (current) drug therapy; Z87.891 Personal history of nicotine dependence; Z88.0 Allergy status to penicillin; E78.00 Pure hypercholesterolemia, unspecified; Z95.4 Presence of other heart-valve replacement ==

== ENCOUNTER → 2021-04-05 | Outpatient (CLI) | payer OTHER | LOC: SJCVC 10:12 | PROVIDERS: ATTEND Internal Medicine Cardiovascular Disease | DX: Z51.81 Encounter for therapeutic drug level monitoring (principal); I48.91 Unspecified atrial fibrillation; I10 Essential (primary) hypertension; E78.00 Pure hypercholesterolemia, unspecified; E11.9 Type 2 diabetes mellitus without complications; Z79.899 Other long term (current) drug therapy; Z79.891 Long term (current) use of opiate analgesic ==

== ENCOUNTER → 2021-05-16 | Outpatient (CLI) | payer OTHER | LOC: SJCVC 08:20 | PROVIDERS: ATTEND Internal Medicine Cardiovascular Disease | DX: E11.9 Type 2 diabetes mellitus without complications (principal); E78.00 Pure hypercholesterolemia, unspecified; Z51.81 Encounter for therapeutic drug level monitoring; Z79.01 Long term (current) use of anticoagulants ==

== ENCOUNTER → 2021-05-21 | Outpatient (CLI) | payer OTHER | LOC: SJCVC 11:08 | PROVIDERS: ATTEND Internal Medicine Cardiovascular Disease | DX: R94.31 Abnormal electrocardiogram [ECG] [EKG] (principal); I44.7 Left bundle-branch block, unspecified; I10 Essential (primary) hypertension; I48.91 Unspecified atrial fibrillation; R60.9 Edema, unspecified; R55 Syncope and collapse; I25.10 Atherosclerotic heart disease of native coronary artery without angina pectoris; E11.9 Type 2 diabetes mellitus without complications; E78.00 Pure hypercholesterolemia, unspecified; Z88.8 Allergy status to other drugs, medicaments and biological substances; Z79.01 Long term (current) use of anticoagulants; Z87.891 Personal history of nicotine dependence; Z95.828 Presence of other vascular implants and grafts; Z82.49 Family history of ischemic heart disease and other diseases of the circulatory system ==

== ENCOUNTER → 2021-06-13 | Outpatient (CLI) | payer OTHER | LOC: SJCVC 10:19 | PROVIDERS: ATTEND Internal Medicine Cardiovascular Disease | DX: Z51.81 Encounter for therapeutic drug level monitoring (principal); E11.9 Type 2 diabetes mellitus without complications; I10 Essential (primary) hypertension; E78.00 Pure hypercholesterolemia, unspecified; Z79.01 Long term (current) use of anticoagulants ==

== ENCOUNTER → 2021-07-11 | Outpatient (CLI) | payer BC | LOC: SJCVC 09:04 | PROVIDERS: ATTEND Internal Medicine Cardiovascular Disease | DX: Z51.81 Encounter for therapeutic drug level monitoring (principal); E11.9 Type 2 diabetes mellitus without complications; I10 Essential (primary) hypertension; I25.10 Atherosclerotic heart disease of native coronary artery without angina pectoris; E78.00 Pure hypercholesterolemia, unspecified; Z79.01 Long term (current) use of anticoagulants; Z79.899 Other long term (current) drug therapy; Z87.891 Personal history of nicotine dependence; Z88.8 Allergy status to other drugs, medicaments and biological substances; Z95.4 Presence of other heart-valve replacement; Z82.49 Family history of ischemic heart disease and other diseases of the circulatory system ==

== ENCOUNTER → 2021-08-06 | Outpatient (CLI) | payer BC | LOC: SJCVC 08:46 | PROVIDERS: ATTEND Internal Medicine Cardiovascular Disease | DX: Z51.81 Encounter for therapeutic drug level monitoring (principal); Z79.01 Long term (current) use of anticoagulants ==

== ENCOUNTER → 2021-09-02 | Outpatient (CLI) | payer BC | LOC: SJCVC 09:34 | PROVIDERS: ATTEND Internal Medicine Cardiovascular Disease | DX: Z51.81 Encounter for therapeutic drug level monitoring (principal); Z79.01 Long term (current) use of anticoagulants ==